=== PATIENT | male | born 1975 | race Caucasian/White ===

== ENCOUNTER 2020-07-17 13:18 | Inpatient (IN) | payer BC ==
[2020-07-17] MEDS ORDERED: Metoprolol Tartrate 5 MG/5 ML VIAL ONE (13:42)
[2020-07-17] MEDS ORDERED: Nitroglycerin 2% Ointment 1 INCH/1 GM Packet ONE (13:42)
[2020-07-17 13:44] LABS: #Lymphocytes 1.6 thou/uL (1.20-3.40); #Monocytes 0.3 thou/uL (0.11-0.59); #Neutrophils 13.3 thou/uL (1.40-6.50); %Eosinophils 0.1 % (0.0-10.0); %Lymphocytes 10.6 % (21.0-51.0); %Monocytes 2.2 % (0.0-10.0); Mean Corpuscular HGB CONC 33.3 g/dL (32.0-36.0); Mean Corpuscular Hemoglobin 29.1 pg (27.0-31.0); Mean Corpuscular Volume 87.1 fL (78.0-98.0); Mean Platelet Volume 7.1 fL (7.4-10.4); Platelet Count 281 thou/uL (130-400); RBC Distribution Width 11.9 % (11.5-14.5); Red Blood Cell (RBC) Count 5.16 mill/uL (4.70-6.10); White Blood Cell (WBC) Count 15.3 thou/uL (4.8-10.8)
[2020-07-17] MEDS ORDERED: Aspirin Chewable 81 MG TAB ONE (13:45)
[2020-07-17 15:00] LABS: Albumin 4.3 g/dL (3.5-5.0)
[2020-07-17 15:01] LABS: Chloride 104 mmol/L (98-107); Sodium 138 mmol/L (136-145)
[2020-07-17 15:02] LABS: Calcium 9.7 mg/dL (7.8-10.44); Glucose 131 mg/dL (70-105)
[2020-07-17 15:03] LABS: Globulin 3.4 g/dL (2.4-3.5); Protein, Total 7.7 g/dL (6.0-8.3)
[2020-07-17 15:04] LABS: Anion Gap 15 mmol/L (10-20); Bilirubin, Total 0.4 mg/dL (0.2-1.2); Carbon Dioxide 23 mmol/L (22-29)
[2020-07-17 15:05] LABS: Alkaline Phosphatase 54 U/L (40-110)
[2020-07-17 15:06] LABS: Calc. Creatinine Clearance 0 mL/min (70-130)
[2020-07-17 15:07] LABS: BUN (Urea Nitrogen) 16 mg/dL (8.9-20.6)
[2020-07-17 15:08] LABS: ALT (SGPT) 24 U/L (8-55); AST (SGOT) 13 U/L (5-34)
[2020-07-17 15:09] LABS: CK (CPK) 79 U/L (30-200); Lipase 53 U/L (8-78)
--- NOTE | 2020-07-17 16:15 | RAD ---
PORTABLE CHEST; Date: 07/17/2020 HISTORY: Chest pain. FINDINGS: Heart size and mediastinum are within normal limits. Lungs are clear of infiltrates. No bony findings . IMPRESSION: No active intrathoracic disease. POS: NAVIN
[2020-07-17 17:40] LABS: Troponin I Less than 0.010 ng/mL (< 0.028)
[2020-07-17] MEDS ORDERED: Metoprolol Tartrate 25 MG TAB ONE (18:57)
[2020-07-17] MEDS: Metoprolol Tartrate 25 MG TAB PO SCH (18:59)
[2020-07-17] MEDS ORDERED: Nitroglycerin 0.4 MG TAB (25 Tab Bottle) SL PRN (19:40)
[2020-07-17] MEDS ORDERED: Morphine 2 MG/ML VIAL SLOW IVP PRN (19:41)
[2020-07-17] MEDS ORDERED: HYDROcodone/Acetaminophen 5/325 mg Tablet PO PRN (20:04)
[2020-07-17] MEDS ORDERED: Ondansetron ODT 4 MG TAB PO PRN (20:04)
[2020-07-17] MEDS ORDERED: Ondansetron PF 4 MG/2 ML Vial IVP PRN (20:04)
[2020-07-17] MEDS: Acetaminophen 325 MG TAB PO PRN (20:21)
[2020-07-17] MEDS ORDERED: Diltiazem 125 MG in Sodium Chloride 0.9% 100 ML IVPB SCH (21:00)
[2020-07-17 21:01] LABS: Anion Gap 15 mmol/L (10-20); BUN (Urea Nitrogen) 16 mg/dL (8.9-20.6); Calc. Creatinine Clearance 0 mL/min (70-130); Calcium 9.3 mg/dL (7.8-10.44); Carbon Dioxide 23 mmol/L (22-29); Chloride 105 mmol/L (98-107); Glucose 171 mg/dL (70-105); Magnesium 1.9 mg/dL (1.6-2.6); Potassium 3.8 mmol/L (3.5-5.1); Sodium 139 mmol/L (136-145)
[2020-07-17 21:05] LABS: Troponin I Less than 0.010 ng/mL (< 0.028)
--- NOTE | 2020-07-17 21:17 | PDOC.HHP ---
Hospitalist HPI chest pain History of Present Illness: This is a 45-year-old male patient with a history of hypercholesterolemia who presents with intermittent episodes of palpitation and chest pain for the past 4 to 5 days. This has become more frequent with regular chest discomfort that led him to come to the ED for further evaluation. Pain is usually mild however is aggravated by activity with intermittent shortness of breath. He denies any wheezing orthopnea paroxysmal nocturnal dyspnea or swelling of his feet. Is a strong family history of coronary disease with his father having a stent in his grandfather dying of an IN. In the ED his heart rate fluctuated between 100s and 150s. Cardiology/A. fib/consulted and he agreed for admission and monitoring. Presenting BP was 138/100, pulse 115, respiratory rate 16, temperature 98.1 and saturation 97 on room air. CBC and BMP presentation were generally unremarkable. Chest x-ray showed no active intrathoracic events. EKG showed sinus arrhythmia with no ectopy, no ST or T wave anomalies or axis changes on presentation In the ED he received aspirin 3 2 5 mg, metoprolol 5 mg IV push, nitro.. Cardiology recommended 2 5 mg every 6 metoprolol Allergies/Adverse Reactions: Allergy/AdvReac Type Severity Reaction Status Date / Time iodine Allergy Unknown Verified 07/17/20 23:19 Penicillins Allergy Unknown Hives Verified 07/18/20 00:02 shellfish derived Allergy Unknown Hives Verified 07/17/20 23:19 Home Medications: Medication Instructions Recorded Confirmed Type Fenofibrate Nanocrystallized 145 mg PO DAILY 07/17/20 07/17/20 History [Tricor] Aspirin/Acetaminophen/Caffeine 2 tab PO DAILY 07/18/20 07/18/20 History [Excedrin Migraine] Rosuvastatin [Crestor] 10 mg PO DAILY 07/18/20 07/18/20 History Past History: PMHx: PSHx: FHx: Social: Hospitalist HPI ROS Constitutional: denies: fever, chills, sweats, weakness Respiratory: reports: shortness of breath. denies: cough, hemoptysis, SOB with excertion, pleuritic pain Cardiovascular: reports: chest pain, palpitations. denies: orthopnea, paroxysmal noc. dyspnea, edema Gastrointestinal: denies: nausea, vomiting, abdominal pain, diarrhea Genitourinary: denies: dysuria, frequency, incontinence Musculoskeletal: denies: neck pain, shoulder pain, arm pain Neurological: denies: weakness, numbness, incoordination All other systems reviewed; all pertinent +/- noted in HPI/Subj Hospitalist Exam General Appearance: awake alert Eye: PERRL, anicteric sclera ENT: normocephalic atraumatic Heart: RRR, no murmur, no gallops, no rubs, normal peripheral pulses Respiratory: CTAB, no wheezes, no rales, no ronchi Gastrointestinal: soft, non-tender, non-distended, normal bowel sounds Extremities: no cyanosis, no clubbing, no edema Skin: normal turgor, no lesions Neurological: cranial nerve grossly intact, no weakness, no focal deficits Musculoskeletal: normal tone Psychiatric: normal affect, normal behavior, A&O x 3 Hospitalist Results Result Diagrams: 07/19/20 04:16 07/19/20 04:16 Lab results: Laboratory Last Values WBC 15.3 thou/uL (4.8-10.8) H 07/17/20 13:34 RBC 5.16 mill/uL (4.70-6.10) 07/17/20 13:34 Hgb 15.0 g/dL (14.0-18.0) 07/17/20 13:34 Hct 44.9 % (42.0-52.0) 07/17/20 13:34 MCV 87.1 fL (78.0-98.0) 07/17/20 13:34 MCH 29.1 pg (27.0-31.0) 07/17/20 13:34 MCHC 33.3 g/dL (32.0-36.0) 07/17/20 13:34 RDW 11.9 % (11.5-14.5) 07/17/20 13:34 Plt Count 281 thou/uL (130-400) 07/17/20 13:34 MPV 7.1 fL (7.4-10.4) L 07/17/20 13:34 Neutrophils % 87.0 % (42.0-75.0) H 07/17/20 13:34 Lymphocytes % 10.6 % (21.0-51.0) L 07/17/20 13:34 Monocytes % 2.2 % (0.0-10.0) 07/17/20 13:34 Eosinophils % 0.1 % (0.0-10.0) 07/17/20 13:34 Basophils % 0.0 % (0.0-1.0) 07/17/20 13:34 Neutrophils # 13.3 thou/uL (1.40-6.50) H 07/17/20 13:34 Lymphocytes # 1.6 thou/uL (1.20-3.40) 07/17/20 13:34 Monocytes # 0.3 thou/uL (0.11-0.59) 07/17/20 13:34 Eosinophils # 0.0 thou/uL (0.0-0.7) 07/17/20 13:34 Basophils # 0.0 thou/uL (0.0-0.2) 07/17/20 13:34 D-Dimer Less than 0.27 *mcg/mL (0.27-0.43) L 07/17/20 13:34 Sodium 139 mmol/L (136-145) 07/17/20 20:30 Potassium 3.8 mmol/L (3.5-5.1) 07/17/20 20:30 Chloride 105 mmol/L (98-107) 07/17/20 20:30 Carbon Dioxide 23 mmol/L (22-29) 07/17/20 20:30 Anion Gap 15 mmol/L (10-20) 07/17/20 20:30 BUN 16 mg/dL (8.9-20.6) 07/17/20 20:30 Creatinine 0.90 mg/dL (0.7-1.3) 07/17/20 20:30 Estimated GFR (MDRD) Greater than 90 07/17/20 20:30 Glucose 171 mg/dL (70-105) H 07/17/20 20:30 Calcium 9.3 mg/dL (7.8-10.44) 07/17/20 20:30 Magnesium 1.9 mg/dL (1.6-2.6) 07/17/20 20:30 Total Bilirubin 0.4 mg/dL (0.2-1.2) 07/17/20 14:35 AST 13 U/L (5-34) 07/17/20 14:35 ALT 24 U/L (8-55) 07/17/20 14:35 Alkaline Phosphatase 54 U/L (40-110) 07/17/20 14:35 Creatine Kinase 79 U/L (30-200) 07/17/20 14:35 Troponin I Less than 0.010 ng/mL (< 0.028) 07/17/20 20:30 Serum Total Protein 7.7 g/dL (6.0-8.3) 07/17/20 14:35 Albumin 4.3 g/dL (3.5-5.0) 07/17/20 14:35 Globulin 3.4 g/dL (2.4-3.5) 07/17/20 14:35 Albumin/Globulin Ratio 1.3 g/dL (1.2-2.2) 07/17/20 14:35 Lipase 53 U/L (8-78) 07/17/20 14:35 TSH 3rd Generation 0.3611 uIU/mL (0.35-4.94) 07/17/20 13:34 Hospitalist H&P A/P Plan: This is a 45-year-old male patient with a history of hyperlipidemia who presents with intermittent chest pain and palpitations for the past 45 days. Chest pain Generally atypical Received aspirinwe will continue Monitor on telemetry Initial troponin is normalwe will trend N.p.o. Cardiology evaluation in a.m. Cardiac arrythmias Patient has fluctuating heart rates with intermitent SVTs, VTs on tele We will monitor on telemetry On metoprolol 25 every 4 We will add Cardizem once rate keeps increasing EP evaluation in a.m.Dr. Ayala is following History of hyperlipidemia Continue home medications once verified. Go to [facility] code VT prophylaxislevel
[2020-07-17 22:50] VITALS: BMI 29.2
[2020-07-18] MEDS: Metoprolol Tartrate 25 MG TAB PO SCH ×5 (00:03→21:25)
[2020-07-18] MEDS: Acetaminophen 325 MG TAB PO PRN (00:04)
--- NOTE | 2020-07-18 00:10 | CON ---
DATE OF CONSULTATION: 07/17/2020 ADDITIONAL REFERRING PHYSICIAN: Milind Martin MD HISTORY OF PRESENT ILLNESS: I am seeing Mr. Rios at our [facility] ER for electrophysiology consultation. His problems are: 1. Recurrent palpitations with associated chest tightness and dyspnea. a. EKG suggestive of frequent paroxysmal atrial tachycardia. b. Nonsustained wide-complex rhythm also noted, VT versus aberrant conducted atrial tach. 2. History of hyperlipidemia. 3. Strong family history of early coronary artery disease of the father and history of atrial fibrillation with father. ALLERGIES: PENICILLINS AND SHELLFISH CONTAINING PRODUCTS. MEDICATIONS AT HOME: Included none. SUBJECTIVE: Mr. Rios is here due to 6 days history of palpitations and dyspnea. Some dull chest tightness sensation is also felt. He eventually ended up with Dr. Kearney, his primary care doctor's office, who sent him to Dr. Martin's office eventually and in the ER, he has been noted to have runs of narrow complex but also wide-complex arrhythmia, none of them were sustained. His palpitations are fairly read as symptomatic. He did not pass out, mildly lightheaded at times. No PND, orthopnea lower extremity versus any fluid overload. There are no additional issues. No stroke-like symptoms. No bleeding issues. No fever, chills, or cough. He is not markedly dyspneic at rest. REVIEW OF SYSTEMS: The rest of 12-point review of system is otherwise unremarkable. SOCIAL HISTORY: No prior cardiac history. Denies smoking, EtOH, or drug abuse. He is a [employer] professor. FAMILY HISTORY: Significant for early heart attack of the father who had atrial fibrillation ablation as well. OBJECTIVE: VITAL SIGNS: Blood pressure initially 138/100, heart rate 115, respirations 16, and temperature 98.1 degrees Fahrenheit. Subsequent blood pressure is 126/90, heart rate 90, respirations 17. GENERAL: This is an alert and oriented man, in no apparent distress. NECK: Supple. Jugular veins are not distended. CHEST: Coarse without crackles. HEART: Sounds are regular with episodes of tachy runs are heard. No murmur or gallop. ABDOMEN: Benign. Bowel sounds are positive. EXTREMITIES: Lower extremities without edema, clubbing, or cyanosis. Pulses are adequate. NEUROLOGIC: The patient is nonfocal. MUSCULOSKELETAL: Without joints swelling or deformity. SKIN: Without rash. DATABASE: EKG from admission reviewed revealing sinus rhythm with paroxysmal atrial tachycardia runs alternating with sinus beats, thus clearly differential P-waves seen which are with negative aVL and AVF vector, and the P-waves are seen suggestive of left atrial in origin. I did review an electronically transmitted image of rhythm strip from Dr. Kearney's office, which seems to indicate a nonsustained wide-complex run, but this is similar rates as the atrial tachyarrhythmia runs which could raise the possibility of aberrant and complex PAT, although P-waves are difficult to visualize. LABORATORY DATA: Troponin 0.01. TSH 0.036. D-dimer is 0.27. White count is 15.3, hemoglobin 15, platelet count is 281, which was 87. Sodium 138, potassium 4, BUN is 15, creatinine 0.84, albumin 4.3, globulin 3.4. AST and ALT are 13 and 24. Bilirubin is 0.4. Chest x-ray shows no active cardiothoracic disease and D-dimer was negative. ASSESSMENT AND PLAN: Mr. Rios is a pleasant 45-year-old man with history of hyperlipidemia. No prior cardiac history who though has a strong family history of early coronary artery disease of his father. He is presenting with 6 days of palpitations associated with dull chest pains and dyspnea. EKG suggestive of paroxysmal atrial tachycardia runs, which seems to have somewhat improved, but not limited by initial IV beta-dorian therapy. So far, there is no obvious provoking factor of this atrial arrhythmia identified. Clearly rapid heartbeats could contribute to his chest pains. On the other hand is strong family history. Ischemic evaluation could be reasonable. Also 2D echo would be beneficial to rule out structural heart disease. In the meantime, p.o. beta-blockers, possibly IV Cardizem could be considered if that is insufficient to suppress the rhythm. Long-term addition of antiarrhythmic agents depending on the cardiac workup could be considered. Hence, the lack of sustained atrial arrhythmias for now. I would not commit him for oral anticoagulation. Subcutaneous Lovenox likely will suffice in the interm. If long-term medical management fails, there could be a consideration for ablated therapy. Thank you again for allowing me to participate in care of this patient. Job ID: [id number] [facility]
[2020-07-18] MEDS ORDERED: Magnesium 2 GM/50 ML 2 GM in Premix Bag 1 BAG IVPB SCH (00:30)
[2020-07-18 01:18] LABS: Troponin I 0.017 ng/mL (< 0.028)
[2020-07-18 04:51] LABS: #Lymphocytes 2.1 thou/uL (1.20-3.40); #Monocytes 1.6 thou/uL (0.11-0.59); %Basophils 0.1 % (0.0-1.0); %Eosinophils 0.1 % (0.0-10.0); %Monocytes 8.9 % (0.0-10.0); Hemoglobin 14.2 g/dL (14.0-18.0); Mean Corpuscular Hemoglobin 30.3 pg (27.0-31.0); Mean Corpuscular Volume 88.9 fL (78.0-98.0); Mean Platelet Volume 7.1 fL (7.4-10.4); Platelet Count 289 thou/uL (130-400); Red Blood Cell (RBC) Count 4.69 mill/uL (4.70-6.10); White Blood Cell (WBC) Count 17.7 thou/uL (4.8-10.8)
[2020-07-18 05:04] LABS: Anion Gap 15 mmol/L (10-20); BUN (Urea Nitrogen) 19 mg/dL (8.9-20.6); Calc. Creatinine Clearance 140 mL/min (70-130); Calcium 9.1 mg/dL (7.8-10.44); Carbon Dioxide 23 mmol/L (22-29); Chloride 107 mmol/L (98-107); Glucose 117 mg/dL (70-105); Potassium 3.9 mmol/L (3.5-5.1); Sodium 141 mmol/L (136-145)
[2020-07-18] MEDS: Fenofibrate Nanocrystallized 145 MG TAB PO SCH (09:02)
[2020-07-18] MEDS ORDERED: ADENOSINE 60 MG/20 ML VIAL ONE (09:55)
[2020-07-18] MEDS ORDERED: Communication Order-Pharmacy FS SCH (11:30)
--- NOTE | 2020-07-18 12:56 | PDOC.EP ---
- Subjective Date: 07/18/20 Time: 12:55 Interval History: Had frequent palpitations overnight. Chest tightness sensation better. - Review of Systems Constitutional: denies: chills, fever, malaise, sweats, weakness, other Respiratory: denies: cough, dry, hemoptysis, pleuritic pain, shortness of breath, SOB with excertion, sputum, wheezing, other Cardiology: reports: heart racing, palpitations. denies: chest pain, edema, orthopnea, paroxysmal noc. dyspnea, passing out Gastrointestinal: denies: abdominal pain, constipation, diarrhea, hematochezia, melena, nausea, vomitting, other Musculoskeletal: denies: unstable gait, falls, neck pain, shoulder pain, arm pain, hand pain, leg pain, foot pain, other Neurological: denies: headache, vision changes, other - Objective Allergies/Adverse Reactions: Allergies Allergy/AdvReac Type Severity Reaction Status Date / Time iodine Allergy Unknown Verified 07/17/20 23:19 Penicillins Allergy Unknown Hives Verified 07/18/20 00:02 shellfish derived Allergy Unknown Hives Verified 07/17/20 23:19 Current Medications Acetaminophen (Acetaminophen 325 Mg Tab) 650 mg PO Q4H PRN PRN Reason: Headache/Fever/Mild Pain (1-3) Last Admin: 07/18/20 00:04 Dose: 650 mg Documented by: Hydrocodone Bitart/Acetaminophen (Hydrocodone/Acetaminophen 5/325 Mg Tablet) 1 tab PO Q4H PRN PRN Reason: Moderate Pain (4-6) Fenofibrate (Fenofibrate Nanocrystallized 145 Mg Tab) 145 mg PO DAILY [facility] Last Admin: 07/18/20 09:02 Dose: 145 mg Documented by: Diltiazem HCl 125 mg/ Sodium (Chloride) 125 mls @ 5 mls/hr IVPB INF [facility]; Protocol Last Admin: 07/17/20 21:42 Dose: 125 mls Documented by: Sodium Chloride (Normal Saline 0.9%) 1,000 mls @ 100 mls/hr IV .Q10H [facility] Influenza Virus Vaccine Quadrival (Flu Vacc Be4583-02(6mos Up)/Pf 60 Mcg/0.5 Ml Syringe) 60 mcg IM .ONCE ONE Stop: 07/18/20 21:01 Metoprolol Tartrate (Metoprolol Tartrate 25 Mg Tab) 25 mg PO QID [facility] Last Admin: 07/18/20 09:00 Dose: Not Given Documented by: Miscellaneous Information (Communication Order-Pharmacy ) 0 each FS ONE [facility] Stop: 07/18/20 23:59 Morphine Sulfate (Morphine 2 Mg/Ml Vial) 2 mg SLOW IVP Q4H PRN PRN Reason: Severe Pain (7-10) Nitroglycerin (Nitroglycerin 0.4 Mg Tab (25 Tab Bottle)) 0.4 mg SL Q5MIN PRN PRN Reason: Chest Pain Ondansetron HCl (Ondansetron Odt 4 Mg Tab) 4 mg PO Q6H PRN PRN Reason: Nausea/Vomiting Ondansetron HCl (Ondansetron Pf 4 Mg/2 Ml Vial) 4 mg IVP Q6H PRN PRN Reason: Nausea/Vomiting Vital Signs & Weight: Vital Signs Temp Pulse Resp BP BP Pulse Ox 07/18/20 07:53 97.6 F 72 16 90/55 L 94 L 07/18/20 04:05 98.6 F 63 16 96/59 L 96 Weight 204 lb I/O: I/O 07/17/20 07/18/20 07/19/20 06:59 06:59 06:59 Intake Total 480 Balance 480 - Physical Exam General: alert & oriented x3, appears well HEENT: normocephaly Neck: no JVD/HJR Cardiology: no murmur, regular rate, regular rhythm Lungs: normal breath sounds Neurology: grossly intact Abdomen: unremarkable, soft, non-tender Extremities: warm Skin: device site stable w/o swelling Musculoskeletal: no pain - Labs Result Diagrams: 07/18/20 04:08 07/18/20 04:08 - EKG Interpretation EKG Method: Telemetry EKG shows: Sinus rhythm, other (Frequent PAT runs. Occasional aberration. Cannot rule out NS-VT runs.) - Assessment/Plan Assessment/Plan: Mr. Rios is a pleasant 45-year-old man with history of hyperlipidemia. No prior cardiac history who though has a strong family history of early coronary artery disease of his father. He is presenting with 6 days of palpitations associated with dull chest pains and dyspnea. EKG suggestive of paroxysmal atrial tachycardia runs, which seems to have somewhat improved, but not limited by initial IV beta-dorian therapy. So far, there is no obvious provoking factor of this atrial arrhythmia identified. PROBLEMS: 1. Parox atrial tachycardia with associated chest tightness and dyspnea. a. EKG suggestive of frequent paroxysmal atrial tachycardia. b. Nonsustained wide-complex rhythm also noted, VT versus aberrant conducted atrial tach, hence identical CL, 1:1 AV relationship most likley aberratly conducted A.tach. . c. Clearly rapid heartbeats could contribute to his chest pains. Ischemic eval is planned per Dr Martin. . 2. History of hyperlipidemia. 3. Strong family history of early coronary artery disease of the father and history of atrial fibrillation with father. 07/18/20: Palpitations continue overnight. IV Diltiazem was transiently used, but did not eliminate arrhythmia, stopped due to tendency for bradycardia. 2D echo and stress test results pending to rule out structural heart disease. If workup negative would start flecainde 100mg BID. If structural heart disease would consider transient amiodarone. In the meantime, uptitrate p.o. beta-blockers, Hence, the lack of sustained atrial arrhythmias for now. I would not commit him for oral anticoagulation. Subcutaneous Lovenox likely will suffice in the interim. Will see him again 07/21 if kept over the weekend, otherwise close follow up in office after 1 week Home monitor.
[2020-07-18] MEDS: Sodium Chloride 0.9% 1,000 ML IV SCH ×2 (13:21→21:24)
--- NOTE | 2020-07-18 13:49 | CON ---
DATE OF CONSULTATION: REASON FOR CONSULTATION: Atypical chest pain. HISTORY OF PRESENT ILLNESS: Mr. Rios is a 45-year-old gentleman, who initially was seen and evaluated by Dr. Faibán Kearney yesterday. I had a long discussion with Dr. Fabián Kearney about the case yesterday. The patient was having palpitations. He is concerned about COVID pneumonia. He tested negative x3. He continued having palpitations intermittently with lightheadedness. No syncope or presyncope noted. He also had associated chest tightness and pressure. States the chest tightness and pressure were worse with lying down, better with sitting up. He was seen and evaluated by Dr. Fabián Kearney's office yesterday, where he was found to have brief runs of atrial tachycardia with the PACs and pauses. He also appeared to have a wide-complex tachycardia. He was seen briefly, evaluated in our office yesterday and was recommended to proceed to the emergency room. PAST MEDICAL HISTORY: Hyperlipidemia. FAMILY HISTORY: CAD. ALLERGIES: IODINE, PENICILLIN, SHELLFISH. HOME MEDICATIONS: Include fenofibrate. SOCIAL HISTORY: No current tobacco or alcohol use. 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 REVIEW OF SYSTEMS: A 10-point review of systems is reviewed and is as above, otherwise negative. PHYSICAL EXAMINATION: VITAL SIGNS: Blood pressure 114/76, pulse 80, temperature 96.4. GENERAL: Patient is a pleasant male who is in no acute distress. The patient appears their stated age. NEUROLOGIC: The patient is alert and oriented x3 with no focal neurologic deficits. HEENT: Sclerae without icterus. Mouth has moist mucous membranes with normal pallor. NECK: No JVD. Carotid upstroke brisk. No bruits bilaterally. LUNGS: Clear to auscultation with unlabored respirations. BACK: No scoliosis or kyphosis. CARDIAC: Regular rate and rhythm with normal S1 and S2. No S3 or S4 noted. No significant rubs, murmurs, thrills, or gallops noted throughout the precordium. PMI is not displaced. There is no parasternal heave. ABDOMEN: Soft, nontender, nondistended. No peritoneal signs present. No hepatosplenomegaly. No abnormal striae. EXTREMITIES: 2+ femoral and 2+ dorsalis pedis pulses. No cyanosis, clubbing, or edema. SKIN: No gross abnormalities. CURRENT LABS: CK negative. Hemoglobin 14.2. Creatinine 0.88. Troponin negative. IMPRESSION: 1. Wide-complex tachycardia. 2. Coronary artery disease. 3. Chest tightness. RECOMMENDATIONS: I am certainly concerned about chest pain as being cardiac, secondary to coronary artery disease. He has hyperlipidemia in addition to a family history of CAD. discussed the procedure of coronary angiography. I discussed the procedure in full detail with Mr. Rios. The risks of the procedure include but are not limited to the following: , stroke, RI, need for emergency surgery, loss of limb, bleeding, and infection, as well as a reaction to the dye causing kidney failure and needing long-term dialysis. I also discussed the risks of PCI to include all of the above including coronary dissection and perforation in addition to acute stent thrombosis and restenosis. All questions about the procedure were answered. Given the above, the patient agreed to proceed with coronary angiography and possible PCI. The patient does have an iodine allergy, so we will need to wait on angio. In the meantime, would recommend a noninvasive stress study. If felt to be within normal limits, I would then continue treat medically and leave it at the discretion of EP on how to treat his dysrhythmia. We will also recommend the ibuprofen in addition to colchicine in case this is an atypical presentation of pericarditis with irritation. Job ID: [id number]
[2020-07-18] MEDS: Ibuprofen 600 MG TAB PO SCH ×2 (18:01→23:29)
--- NOTE | 2020-07-18 18:04 | NM ---
NUCLEAR MEDICINE CARDIAC MYOCARDIAL PERFUSION SPECT EJECTION FRACTION STUDY WALL MOTION CINE: DATE: 07/18/2020 HISTORY: 45-year-old male with dyslipidemia presents with chest pain. TECHNIQUE: Number of days: 1 Rest study: Technetium 99m-sestamibi (Cardiolite) dose: 10.0 mCi Pharmacologic stress: Adenosine dose: 51.5 mg Stress study: Technetium 99m-sestamibi (Cardiolite) dose: 32.0 mCi FINDINGS: CARDIAC (MYOCARDIAL PERFUSION) SPECT Distribution of sestamibi is homogeneous throughout the left ventricle, with no fixed or reversible m yocardial perfusion defects. EJECTION FRACTION STUDY Left ventricular EF = 43 % WALL MOTION CINE Mild global hypokinesis, but no focal wall motion abnormality.. IMPRESSION: 1. Decreased left ventricular ejection fraction of 43%. 2. No evidence of left ventricular myocardial ischemia or infarction.
[2020-07-18] MEDS ORDERED: FLU VACC QS2020-21(6MOS UP)/PF 60 MCG/0.5 ML SYRINGE IM ONE (21:00)
[2020-07-18] MEDS: Colchicine 0.6 MG TAB PO SCH (21:25)
--- NOTE | 2020-07-18 22:44 | PDOC.HOSPP ---
- Subjective Encounter Date: 07/18/20 Encounter Time: 18:00 Subjective: Patient seen and examined for chest pain with palpitations. Underwent stress test earlier today. Denies any chest pain. - Objective Vital Signs & Weight: Vital Signs (12 hours) Temp Pulse Resp BP Pulse Ox 07/18/20 16:00 96.5 F L 63 17 117/80 95 07/18/20 12:00 96.4 F L 80 12 114/76 96 Weight Weight 204 lb I&O: 07/17/20 07/18/20 07/19/20 06:59 06:59 06:59 Intake Total 480 720 Balance 480 720 Result Diagrams: 07/19/20 04:16 07/19/20 04:16 Additional Labs: Abnormal Lab Results - Last 48 hrs 07/17/20 13:34: WBC 15.3 H, MPV 7.1 L, Neutrophils % 87.0 H, Lymphocytes % 10.6 L, Neutrophils # 13.3 H 07/17/20 13:34: D-Dimer Less than 0.27 L 07/18/20 04:08: WBC 17.7 H, RBC 4.69 L, Hct 41.7 L, MPV 7.1 L, Neutrophils % 79 .0 H, Lymphocytes % 12.0 L, Neutrophils # 14.0 H, Monocytes # 1.6 H Radiology Reviewed by me: Yes (Chest x-rayno infiltrate) EKG Reviewed by me: Yes (Sinus rhythm/tachyarrhythmia on telemetry) Hospitalist ROS - Review of Systems Gastrointestinal: denies: nausea, vomiting, abdominal pain, diarrhea, constipation, melena, hematochezia, other Genitourinary: denies: dysuria, frequency, incontinence, hematuria, retention, other - Medication Medications: Active Medications Generic Name Dose Route Start Last Admin Trade Name Freq PRN Reason Stop Dose Admin Acetaminophen 650 mg 07/17/20 20:04 07/18/20 00:04 Acetaminophen 325 Mg Tab PO 650 mg Q4H PRN Administration Headache/Fever/Mild Pain (1-3) Colchicine 0.6 mg 07/18/20 21:00 07/18/20 21:25 Colchicine 0.6 Mg Tab PO 0.6 mg BID DAVION Administration Fenofibrate 145 mg 07/18/20 09:00 07/18/20 09:02 Fenofibrate Nanocrystallized 145 Mg Tab PO 145 mg DAILY DAVION Administration Diltiazem HCl 125 mg/ Sodium 125 mls @ 5 mls/hr 07/17/20 21:00 07/17/20 21:42 Chloride IVPB 125 mls INF DAVION Administration Protocol 5 MG/HR Sodium Chloride 1,000 mls @ 100 mls/hr 07/18/20 11:30 07/18/20 21:24 Normal Saline 0.9% IV Not Given .Q10H DAVION Ibuprofen 600 mg 07/18/20 18:00 07/18/20 18:01 Ibuprofen 600 Mg Tab PO 600 mg Q6HR DAVION Administration Metoprolol Tartrate 25 mg 07/17/20 17:00 07/18/20 21:25 Metoprolol Tartrate 25 Mg Tab PO 25 mg QID DAVION Administration Hospitalist Exam Vitals: Vital Signs (12 hours) Temp Pulse Resp BP Pulse Ox 07/18/20 16:00 96.5 F L 63 17 117/80 95 07/18/20 12:00 96.4 F L 80 12 114/76 96 Weight Weight 204 lb General Appearance: NAD Neck: supple, no JVD Heart: RRR, no gallops Respiratory: no wheezes, no rales, no ronchi, normal chest expansion Gastrointestinal: soft, non-tender, normal bowel sounds Extremities: no cyanosis, no clubbing Skin: normal turgor Neurological: no new deficit Psychiatric: normal affect, A&O x 3 Hosp A/P (1) Chest pain Code(s): R07.9 - CHEST PAIN, UNSPECIFIED Status: Acute (2) Palpitations Code(s): R00.2 - PALPITATIONS Status: Acute (3) Wide-complex tachycardia Code(s): I47.2 - VENTRICULAR TACHYCARDIA Status: Acute (4) Dyslipidemia Code(s): E78.5 - HYPERLIPIDEMIA, UNSPECIFIED Status: Chronic (5) Family history of heart disease Code(s): Z82.49 - FAMILY HX OF ISCHEM HEART DIS AND OTH DIS OF THE CIRC SYS Status: Chronic (6) Allergy to iodine Code(s): Z88.8 - ALLERGY STATUS TO OTHER DRUG/MEDS/BIOL SUBST Status: Chronic - Plan DVT proph w/SCDs Patient is a 45-year-old male with hyperlipidemia and strong family history of heart disease presented to the hospital on 07/17 with chest discomfort along with intermittent palpitations of 4 to 5 days duration. In the emergency room, he was found to have intermittent SVTs and ventricular tachycardia. He was started on Cardizem drip which was later discontinued. Patient was then evaluated by electrophysiology as well as cardiology. Electrophysiology recommended beta- blockers. He also underwent a Cardiolite stress test on 07/18 that was negative for reversible ischemia or infarction. Ejection fraction on the stress test was 43%. He also underwent echocardiogramreport pending at this time. Plan: Magnesium replaced. Cardiology and electrophysiology input appreciated. Add aspirin. Continue colchicine and ibuprofen as needed per cardiology. Add GI prophylaxis. Check labs in a.m. DC planning once cleared by cardiology and electrophysiology
[2020-07-18] MEDS ORDERED: Electrolyte Replacement Protocol 1 EACH FS SCH (23:00)
[2020-07-19] MEDS ORDERED: Magnesium 2 GM/50 ML 2 GM in Premix Bag 1 BAG IVPB SCH (01:00)
[2020-07-19] MEDS: Sodium Chloride 0.9% 1,000 ML IV SCH (04:33)
[2020-07-19 04:37] LABS: #Basophils 0.1 thou/uL (0.0-0.2); #Eosinphils 0.1 thou/uL (0.0-0.7); #Lymphocytes 5.2 thou/uL (1.20-3.40); #Monocytes 1.1 thou/uL (0.11-0.59); #Neutrophils 6.9 thou/uL (1.40-6.50); %Basophils 0.5 % (0.0-1.0); %Eosinophils 0.9 % (0.0-10.0); %Monocytes 7.9 % (0.0-10.0); %Neutrophils 51.7 % (42.0-75.0); Hemoglobin 13.6 g/dL (14.0-18.0); Mean Corpuscular Hemoglobin 30.1 pg (27.0-31.0); Mean Corpuscular Volume 88.4 fL (78.0-98.0); Platelet Count 261 thou/uL (130-400); Red Blood Cell (RBC) Count 4.51 mill/uL (4.70-6.10); White Blood Cell (WBC) Count 13.4 thou/uL (4.8-10.8)
[2020-07-19 04:57] LABS: Anion Gap 12 mmol/L (10-20); BUN (Urea Nitrogen) 28 mg/dL (8.9-20.6); Calc. Creatinine Clearance 125 mL/min (70-130); Calcium 8.8 mg/dL (7.8-10.44); Carbon Dioxide 27 mmol/L (22-29); Chloride 104 mmol/L (98-107); Glucose 98 mg/dL (70-105); Magnesium 2.8 mg/dL (1.6-2.6); Potassium 3.8 mmol/L (3.5-5.1); Sodium 139 mmol/L (136-145)
[2020-07-19] MEDS ORDERED: Sodium Chloride 0.9% 250 ML IV SCH (05:00)
[2020-07-19] MEDS: Ibuprofen 600 MG TAB PO SCH ×3 (05:29→17:34)
[2020-07-19] MEDS: Metoprolol Tartrate 25 MG TAB PO SCH ×3 (08:13→20:26)
[2020-07-19] MEDS: Colchicine 0.6 MG TAB PO SCH ×2 (08:13→20:27)
[2020-07-19] MEDS: Aspirin 325 mg Enteric Coated Tablet PO SCH (08:13)
[2020-07-19] MEDS: Fenofibrate Nanocrystallized 145 MG TAB PO SCH (08:13)
[2020-07-19] MEDS ORDERED: Amiodarone 200 MG TAB PO SCH (10:00)
[2020-07-19] MEDS ORDERED: Metoprolol Tartrate 25 MG TAB PO SCH (12:15)
--- NOTE | 2020-07-19 18:08 | PDOC.HOSPP ---
- Subjective Encounter Date: 07/19/20 Encounter Time: 14:00 Subjective: Patient seen and examined for chest discomfort with palpitations. Overnight events noted. Was started on amiodarone this morning per electrophysiology. Metoprolol was held due to bradycardia. Patient was symptomatic during the tachyarrhythmia last night - Objective Vital Signs & Weight: Vital Signs (12 hours) Temp Pulse Resp BP BP Pulse Ox 07/19/20 15:46 97.8 F 61 16 101/56 L 99 07/19/20 11:24 98.6 F 69 16 108/67 96 07/19/20 08:00 97.5 F L 82 16 105/57 L 96 Weight Weight 204 lb I&O: 07/18/20 07/19/20 07/20/20 06:59 06:59 06:59 Intake Total 480 1380 850 Output Total 550 Balance 480 830 850 Result Diagrams: 07/19/20 04:16 07/19/20 04:16 Additional Labs: Abnormal Lab Results - Last 48 hrs 07/18/20 04:08: WBC 17.7 H, RBC 4.69 L, Hct 41.7 L, MPV 7.1 L, Neutrophils % 79.0 H, Lymphocytes % 12.0 L, Neutrophils # 14.0 H, Monocytes # 1.6 H 07/19/20 04:16: BUN 28 H, Magnesium 2.8 H 07/19/20 04:16: WBC 13.4 H, RBC 4.51 L, Hgb 13.6 L, Hct 39.9 L, MPV 7.0 L, Neutrophils # 6.9 H, Lymphocytes # 5.2 H, Monocytes # 1.1 H EKG Reviewed by me: Yes (Telemetry showed tachyarrhythmia with sinus pauses) Hospitalist ROS - Review of Systems Gastrointestinal: denies: nausea, vomiting, abdominal pain, diarrhea, constip ation, melena, hematochezia, other Genitourinary: denies: dysuria, frequency, incontinence, hematuria, retention, other - Medication Medications: Active Medications Generic Name Dose Route Start Last Admin Trade Name Freq PRN Reason Stop Dose Admin Acetaminophen 650 mg 07/17/20 20:04 07/18/20 00:04 Acetaminophen 325 Mg Tab PO 650 mg Q4H PRN Administration Headache/Fever/Mild Pain (1-3) Aspirin 325 mg 07/19/20 09:00 07/19/20 08:13 Aspirin 325 Mg Enteric Coated Tablet PO 325 mg DAILY DAVION Administration Colchicine 0.6 mg 07/18/20 21:00 07/19/20 08:13 Colchicine 0.6 Mg Tab PO 0.6 mg BID DAVION Administration Fenofibrate 145 mg 07/18/20 09:00 07/19/20 08:13 Fenofibrate Nanocrystallized 145 Mg Tab PO 145 mg DAILY DVAION Administration Ibuprofen 600 mg 07/18/20 18:00 07/19/20 17:34 Ibuprofen 600 Mg Tab PO 600 mg Q6HR DAVION Administration Pantoprazole Sodium 40 mg 07/19/20 09:00 07/19/20 08:13 Pantoprazole 40 Mg Tab PO 40 mg DAILY DAVION Administration Hospitalist Exam Vitals: Vital Signs (12 hours) Temp Pulse Resp BP BP Pulse Ox 07/19/20 15:46 97.8 F 61 16 101/56 L 99 07/19/20 11:24 98.6 F 69 16 108/67 96 07/19/20 08:00 97.5 F L 82 16 105/57 L 96 Weight Weight 204 lb General Appearance: NAD Heart: RRR, no gallops Respiratory: no wheezes, no ronchi Gastrointestinal: soft, non-tender, normal bowel sounds Extremities: no cyanosis, no clubbing Neurological: no new deficit Psychiatric: A&O x 3 Hosp A/P (1) Chest pain Code(s): R07.9 - CHEST PAIN, UNSPECIFIED Status: Acute (2) Palpitations Code(s): R00.2 - PALPITATIONS Status: Acute (3) Wide-complex tachycardia Code(s): I47.2 - VENTRICULAR TACHYCARDIA Status: Acute (4) Dyslipidemia Code(s): E78.5 - HYPERLIPIDEMIA, UNSPECIFIED Status: Chronic (5) Family history of heart disease Code(s): Z82.49 - FAMILY HX OF ISCHEM HEART DIS AND OTH DIS OF THE CIRC SYS Status: Chronic (6) Allergy to iodine Code(s): Z88.8 - ALLERGY STATUS TO OTHER DRUG/MEDS/BIOL SUBST Status: Chronic - Plan DVT proph w/SCDs Patient is a 45-year-old male with hyperlipidemia and strong family history of heart disease presented to the hospital on 07/17 with chest discomfort along with intermittent palpitations of 4 to 5 days duration. In the emergency room, he was found to have intermittent SVTs and ventricular tachycardia. He was started on Cardizem drip which was later discontinued. Patient was then evaluated by electrophysiology as well as cardiology. Electrophysiology recommended beta- blockers. He also underwent a Cardiolite stress test on 07/18 that was negative for reversible ischemia or infarction. Ejection fraction on the stress test was 43%. He also underwent echocardiogramreport pending at this time. He was initially started on metoprolol 25 mg 4 times a day that was later changed to 12.5 mg twice daily due to sinus pauses. On 07/18 he was started on amiodarone per EP Plan: We will continue telemetry monitoring. Continue aspirin. Reduce metoprolol dose to 12.5 mg twice daily per EP recommendation. Continue amiodarone loading. CRP was negative. Continue other medications as above. Case discussed with electrophysiology.
[2020-07-19] MEDS: Amiodarone 200 MG TAB PO SCH (20:27)
[2020-07-20] MEDS: Ibuprofen 600 MG TAB PO SCH ×5 (00:25→23:15)
[2020-07-20] MEDS: Fenofibrate Nanocrystallized 145 MG TAB PO SCH (09:55)
[2020-07-20] MEDS: Colchicine 0.6 MG TAB PO SCH (09:55)
[2020-07-20] MEDS: Amiodarone 200 MG TAB PO SCH ×2 (09:55→21:52)
[2020-07-20] MEDS: Aspirin 325 mg Enteric Coated Tablet PO SCH (09:55)
[2020-07-20] MEDS: Metoprolol Tartrate 25 MG TAB PO SCH ×2 (09:57→21:53)
--- NOTE | 2020-07-20 18:19 | PDOC.HOSPP ---
- Subjective Encounter Date: 07/20/20 Encounter Time: 11:30 Subjective: Patient seen and examined for chest pain/palpitations due to tachyarrhythmia. Denies any new complaints. No shortness of breath or palpitations reported - Objective Vital Signs & Weight: Vital Signs (12 hours) Temp Pulse Resp BP BP BP Pulse Ox 07/20/20 15:15 98.0 F 60 16 109/74 96 07/20/20 12:00 97.5 F L 53 L 16 116/73 97 07/20/20 09:55 97.4 F L 53 L 18 114/80 07/20/20 08:00 97.4 F L 58 L 16 114/80 97 Weight Weight 215 lb 4.8 oz I&O: 07/19/20 07/20/20 07/21/20 06:59 06:59 06:59 Intake Total 1380 1090 Output Total 550 Balance 830 1090 Result Diagrams: 07/19/20 04:16 07/19/20 04:16 EKG Reviewed by me: Yes (Sinus rhythm on telemetry) Hospitalist ROS - Review of Systems Respiratory: denies: cough, dry, shortness of breath, hemoptysis, SOB with excertion, pleuritic pain, sputum, wheezing, other Gastrointestinal: denies: nausea, vomiting, abdominal pain, diarrhea, constip ation, melena, hematochezia, other - Medication Medications: Active Medications Generic Name Dose Route Start Last Admin Trade Name Freq PRN Reason Stop Dose Admin Acetaminophen 650 mg 07/17/20 20:04 07/18/20 00:04 Acetaminophen 325 Mg Tab PO 650 mg Q4H PRN Administration Headache/Fever/Mild Pain (1-3) Amiodarone HCl 400 mg 07/19/20 21:00 07/20/20 09:55 Amiodarone 200 Mg Tab PO 400 mg BID DAVION Administration Aspirin 325 mg 07/19/20 09:00 07/20/20 09:55 Aspirin 325 Mg Enteric Coated Tablet PO 325 mg DAILY DAVION Administration Colchicine 0.6 mg 07/18/20 21:00 07/20/20 09:55 Colchicine 0.6 Mg Tab PO 0.6 mg BID DAVION Administration Fenofibrate 145 mg 07/18/20 09:00 07/20/20 09:55 Fenofibrate Nanocrystallized 145 Mg Tab PO 145 mg DAILY DAVION Administration Ibuprofen 600 mg 07/18/20 18:00 07/20/20 12:03 Ibuprofen 600 Mg Tab PO 600 mg Q6HR DAVION Administration Metoprolol Tartrate 12.5 mg 07/19/20 21:00 07/20/20 09:57 Metoprolol Tartrate 25 Mg Tab PO 12.5 mg BID DAVION Administration Pantoprazole Sodium 40 mg 07/19/20 09:00 07/20/20 09:55 Pantoprazole 40 Mg Tab PO 40 mg DAILY DAVION Administration Hospitalist Exam Vitals: Vital Signs (12 hours) Temp Pulse Resp BP BP BP Pulse Ox 07/20/20 15:15 98.0 F 60 16 109/74 96 07/20/20 12:00 97.5 F L 53 L 16 116/73 97 07/20/20 09:55 97.4 F L 53 L 18 114/80 07/20/20 08:00 97.4 F L 58 L 16 114/80 97 Weight Weight 215 lb 4.8 oz General Appearance: awake alert Neck: supple, no JVD Heart: no murmur, no rubs Respiratory: no wheezes, no rales Gastrointestinal: soft, non-tender Extremities: no cyanosis Neurological: no new deficit Psychiatric: A&O x 3 Hosp A/P (1) Chest pain Code(s): R07.9 - CHEST PAIN, UNSPECIFIED Status: Acute (2) Palpitations Code(s): R00.2 - PALPITATIONS Status: Acute (3) Wide-complex tachycardia Code(s): I47.2 - VENTRICULAR TACHYCARDIA Status: Acute (4) Dyslipidemia Code(s): E78.5 - HYPERLIPIDEMIA, UNSPECIFIED Status: Chronic (5) Family history of heart disease Code(s): Z82.49 - FAMILY HX OF ISCHEM HEART DIS AND OTH DIS OF THE CIRC SYS Status: Chronic (6) Allergy to iodine Code(s): Z88.8 - ALLERGY STATUS TO OTHER DRUG/MEDS/BIOL SUBST Status: Chronic - Plan Patient is a 45-year-old male with hyperlipidemia and strong family history of heart disease presented to the hospital on 07/17 with chest discomfort along with intermittent palpitations of 4 to 5 days duration. In the emergency room, he was found to have intermittent SVTs and ventricular tachycardia. He was started on Cardizem drip which was later discontinued. Patient was then evaluated by electrophysiology as well as cardiology. Electrophysiology recommended beta- blockers. He also underwent a Cardiolite stress test on 07/18 that was negative for reversible ischemia or infarction. Ejection fraction on the stress test was 43%. He also underwent echocardiogramreport pending at this time. He was initially started on metoprolol 25 mg 4 times a day that was later changed to 12.5 mg twice daily due to sinus pauses. On 07/18 he was started on amiodarone per EP Plan: We will continue telemetry monitoring. Continue aspirin. Reduce metoprolol dose to 12.5 mg twice daily per EP recommendation. Continue amiodarone loading. CRP was negative. Continue other medications as above. Case discussed with electrophysiology.
[2020-07-20] MEDS ORDERED: predniSONE 20 MG TAB PO SCH (22:45)
[2020-07-20] MEDS ORDERED: Famotidine 20 MG TAB PO SCH (23:00)
[2020-07-20] MEDS ORDERED: diphenhydrAMINE 25 MG CAP PO SCH (23:00)
--- NOTE | 2020-07-20 23:25 | PDOC.HOSPP ---
- Subjective Encounter Date: 07/20/20 Encounter Time: 11:00 Subjective: Patient seen and examined for chest discomfort/palpitations. Continues to have intermittent palpitations with Arrhythmia on telemetry - Objective Vital Signs & Weight: Vital Signs (12 hours) Temp Pulse Resp BP BP Pulse Ox 07/20/20 15:15 98.0 F 60 16 109/74 96 07/20/20 12:00 97.5 F L 53 L 16 116/73 97 Weight Weight 215 lb 4.8 oz I&O: 07/19/20 07/20/20 07/21/20 06:59 06:59 06:59 Intake Total 1380 1090 750 Output Total 550 300 Balance 830 1090 450 Result Diagrams: 07/19/20 04:16 07/19/20 04:16 Additional Labs: Abnormal Lab Results - Last 48 hrs 07/19/20 04:16: BUN 28 H, Magnesium 2.8 H 07/19/20 04:16: WBC 13.4 H, RBC 4.51 L, Hgb 13.6 L, Hct 39.9 L, MPV 7.0 L, Neutrophils # 6.9 H, Lymphocytes # 5.2 H, Monocytes # 1.1 H EKG Reviewed by me: Yes (survey crew chief shows various arrhythmias) Hospitalist ROS - Review of Systems Respiratory: denies: cough, dry, shortness of breath, hemoptysis, SOB with excertion, pleuritic pain, sputum, wheezing, other Gastrointestinal: denies: nausea, vomiting, abdominal pain, diarrhea, constipation, melena, hematochezia, other - Medication Medications: Active Medications Generic Name Dose Route Start Last Admin Trade Name Praveen PRN Reason Stop Dose Admin Acetaminophen 650 mg 07/17/20 20:04 07/18/20 00:04 Acetaminophen 325 Mg Tab PO 650 mg Q4H PRN Administration Headache/Fever/Mild Pain (1-3) Amiodarone HCl 400 mg 07/19/20 21:00 07/20/20 21:52 Amiodarone 200 Mg Tab PO 400 mg BID DAVION Administration Aspirin 325 mg 07/19/20 09:00 07/20/20 09:55 Aspirin 325 Mg Enteric Coated Tablet PO 325 mg DAILY DAVION Administration Diphenhydramine HCl 25 mg 07/20/20 23:00 07/20/20 23:14 Diphenhydramine 25 Mg Cap PO 07/21/20 01:00 25 mg NOW DAVION Administration Famotidine 40 mg 07/20/20 23:00 07/20/20 23:14 Famotidine 20 Mg Tab PO 07/21/20 01:00 40 mg NOW DAVION Administration Fenofibrate 145 mg 07/18/20 09:00 07/20/20 09:55 Fenofibrate Nanocrystallized 145 Mg Tab PO 145 mg DAILY DAVION Administration Ibuprofen 600 mg 07/18/20 18:00 07/20/20 23:15 Ibuprofen 600 Mg Tab PO 600 mg Q6HR DAVION Administration Metoprolol Tartrate 12.5 mg 07/19/20 21:00 07/20/20 21:53 Metoprolol Tartrate 25 Mg Tab PO 12.5 mg BID DAVION Administration Pantoprazole Sodium 40 mg 07/19/20 09:00 07/20/20 09:55 Pantoprazole 40 Mg Tab PO 40 mg DAILY DAVION Administration Prednisone 30 mg 07/20/20 22:45 07/20/20 23:14 Prednisone 20 Mg Tab PO 07/21/20 00:45 30 mg NOW DAVION Administration Hospitalist Exam Vitals: Vital Signs (12 hours) Temp Pulse Resp BP BP Pulse Ox 07/20/20 15:15 98.0 F 60 16 109/74 96 07/20/20 12:00 97.5 F L 53 L 16 116/73 97 Weight Weight 215 lb 4.8 oz General Appearance: awake alert Neck: supple, no JVD Heart: no gallops, no rubs Respiratory: no wheezes, no rales Gastrointestinal: soft, non-distended, no guarding, no rigidity Extremities: no cyanosis Neurological: no new deficit Psychiatric: normal affect, A&O x 3 Hosp A/P (1) Chest pain Code(s): R07.9 - CHEST PAIN, UNSPECIFIED Status: Acute (2) Palpitations Code(s): R00.2 - PALPITATIONS Status: Acute (3) Wide-complex tachycardia Code(s): I47.2 - VENTRICULAR TACHYCARDIA Status: Acute (4) Dyslipidemia Code(s): E78.5 - HYPERLIPIDEMIA, UNSPECIFIED Status: Chronic (5) Family history of heart disease Code(s): Z82.49 - FAMILY HX OF ISCHEM HEART DIS AND OTH DIS OF THE CIRC SYS Status: Chronic (6) Allergy to iodine Code(s): Z88.8 - ALLERGY STATUS TO OTHER DRUG/MEDS/BIOL SUBST Status: Chronic - Plan DVT proph w/SCDs Patient is a 45-year-old male with hyperlipidemia and strong family history of heart disease presented to the hospital on 07/17 with chest discomfort along with intermittent palpitations of 4 to 5 days duration. In the emergency room, he was found to have intermittent SVTs and ventricular tachycardia. He was started on Cardizem drip which was later discontinued. Patient was then evaluated by electrophysiology as well as cardiology. Electrophysiology recommended beta- blockers. He also underwent a Cardiolite stress test on 07/18 that was negative for reversible ischemia or infarction. Ejection fraction on the stress test was 43%. He also underwent echocardiogramreport pending at this time. He was initially started on metoprolol 25 mg 4 times a day that was later changed to 12.5 mg twice daily due to sinus pauses. On 07/18 he was started on amiodarone per EP Plan: Continue telemetry monitoring. Continue current dose of Imuran as well as metoprolol. Check labs in a.m. Keep npo past midnight for possible cardiac catheterization in a.m. AM labs. Continue other medications as above
[2020-07-21 05:29] LABS: #Eosinphils 0.2 thou/uL (0.0-0.7); #Lymphocytes 1.9 thou/uL (1.20-3.40); #Monocytes 0.4 thou/uL (0.11-0.59); %Basophils 0.4 % (0.0-1.0); %Eosinophils 1.9 % (0.0-10.0); %Monocytes 3.8 % (0.0-10.0); Mean Corpuscular HGB CONC 33.4 g/dL (32.0-36.0); Mean Corpuscular Hemoglobin 29.3 pg (27.0-31.0); Mean Corpuscular Volume 87.8 fL (78.0-98.0); Mean Platelet Volume 7.1 fL (7.4-10.4); Platelet Count 271 thou/uL (130-400); RBC Distribution Width 11.8 % (11.5-14.5); Red Blood Cell (RBC) Count 5.11 mill/uL (4.70-6.10); White Blood Cell (WBC) Count 11.5 thou/uL (4.8-10.8)
[2020-07-21] MEDS: Ibuprofen 600 MG TAB PO SCH ×2 (05:40→11:40)
[2020-07-21] MEDS: diphenhydrAMINE 25 MG CAP PO SCH ×2 (05:40→11:39)
[2020-07-21] MEDS: predniSONE 20 MG TAB PO SCH ×2 (05:40→11:39)
[2020-07-21 05:48] LABS: Anion Gap 14 mmol/L (10-20); BUN (Urea Nitrogen) 22 mg/dL (8.9-20.6); Calc. Creatinine Clearance 129 mL/min (70-130); Carbon Dioxide 22 mmol/L (22-29); Chloride 105 mmol/L (98-107); Glucose 116 mg/dL (70-105); Potassium 4.8 mmol/L (3.5-5.1); Sodium 136 mmol/L (136-145)
[2020-07-21] MEDS: Amiodarone 200 MG TAB PO SCH (08:29)
[2020-07-21] MEDS: Aspirin 325 mg Enteric Coated Tablet PO SCH (08:29)
[2020-07-21] MEDS: Fenofibrate Nanocrystallized 145 MG TAB PO SCH (08:29)
[2020-07-21] MEDS: Metoprolol Tartrate 25 MG TAB PO SCH (08:30)
--- NOTE | 2020-07-21 11:26 | PDOC.EP ---
- Subjective Date: 07/21/20 Time: 11:20 Interval History: feels well. palpitations have quieted over the weekend on amiodarone. Possible DC later today. - Review of Systems Constitutional: denies: chills, fever, malaise, sweats, weakness, other Respiratory: denies: cough, dry, hemoptysis, pleuritic pain, shortness of breath, SOB with excertion, sputum, wheezing, other Cardiology: denies: chest pain, edema, heart racing, light headedness, paroxysmal noc. dyspnea, orthopnea, palpitations, passing out, pleuritic pain, pressure, swelling, other Gastrointestinal: denies: abdominal pain, constipation, diarrhea, hematochezia, melena, nausea, vomitting, other Musculoskeletal: denies: unstable gait, falls, neck pain, shoulder pain, arm pain, hand pain, leg pain, foot pain, other - Objective Allergies/Adverse Reactions: Allergies Allergy/AdvReac Type Severity Reaction Status Date / Time iodine Allergy Unknown Verified 07/17/20 23:19 Penicillins Allergy Unknown Hives Verified 07/18/20 00:02 shellfish derived Allergy Unknown Hives Verified 07/17/20 23:19 Current Medications Acetaminophen (Acetaminophen 325 Mg Tab) 650 mg PO Q4H PRN PRN Reason: Headache/Fever/Mild Pain (1-3) Last Admin: 07/18/20 00:04 Dose: 650 mg Documented by: Hydrocodone Bitart/Acetaminophen (Hydrocodone/Acetaminophen 5/325 Mg Tablet) 1 tab PO Q4H PRN PRN Reason: Moderate Pain (4-6) Amiodarone HCl (Amiodarone 200 Mg Tab) 400 mg PO BID [facility] Last Admin: 07/21/20 08:29 Dose: 400 mg Documented by: Aspirin (Aspirin 325 Mg Enteric Coated Tablet) 325 mg PO DAILY [facility] Last Admin: 07/21/20 08:29 Dose: 325 mg Documented by: Diphenhydramine HCl (Diphenhydramine 25 Mg Cap) 25 mg PO Q6HR [facility] Last Admin: 07/21/20 05:40 Dose: 25 mg Documented by: Fenofibrate (Fenofibrate Nanocrystallized 145 Mg Tab) 145 mg PO DAILY [facility] Last Admin: 07/21/20 08:29 Dose: 145 mg Documented by: Ibuprofen (Ibuprofen 600 Mg Tab) 600 mg PO Q6HR [facility] Last Admin: 07/21/20 05:40 Dose: 600 mg Documented by: Metoprolol Tartrate (Metoprolol Tartrate 25 Mg Tab) 12.5 mg PO BID [facility] Last Admin: 07/21/20 08:30 Dose: 12.5 mg Documented by: Miscellaneous Medication (Electrolyte Replacement Protocol 1 Each) 1 each FS ASDIR [facility] Morphine Sulfate (Morphine 2 Mg/Ml Vial) 2 mg SLOW IVP Q4H PRN PRN Reason: Severe Pain (7-10) Nitroglycerin (Nitroglycerin 0.4 Mg Tab (25 Tab Bottle)) 0.4 mg SL Q5MIN PRN PRN Reason: Chest Pain Ondansetron HCl (Ondansetron Odt 4 Mg Tab) 4 mg PO Q6H PRN PRN Reason: Nausea/Vomiting Ondansetron HCl (Ondansetron Pf 4 Mg/2 Ml Vial) 4 mg IVP Q6H PRN PRN Reason: Nausea/Vomiting Pantoprazole Sodium (Pantoprazole 40 Mg Tab) 40 mg PO DAILY [facility] Last Admin: 07/21/20 08:29 Dose: 40 mg Documented by: Prednisone (Prednisone 20 Mg Tab) 30 mg PO Q6HR [facility] Last Admin: 07/21/20 05:40 Dose: 30 mg Documented by: Sodium Chloride (Flush - Normal Saline 10 Ml Syringe) 10 ml IVF PRN PRN PRN Reason: Saline Flush Vital Signs & Weight: Vital Signs Temp Pulse Resp BP BP BP Pulse Ox 07/21/20 08:27 65 118/77 07/21/20 07:49 97.7 F 56 L 19 103/68 92 L 07/21/20 04:25 95 07/21/20 04:00 98 F 62 13 106/66 95 07/20/20 23:30 61 117/77 98 Weight 211 lb I/O: I/O 07/20/20 07/21/20 07/22/20 06:59 06:59 06:59 Intake Total 1090 910 Output Total 759 Balance 1090 151 - Physical Exam General: alert & oriented x3, appears well, no apparent distress, speech clear, affect appropriate HEENT: mucus membranes moist, normocephaly Neck: supple neck, midline trachea, no JVD/HJR, no masses, no bruit, no lymphadenopathy, no thromegaly Cardiology: regular rate and rhythm, no murmur, regular rate, regular rhythm, PMI nondisplaced Lungs: clear to auscultation, normal breath sounds, normal exam, no wheeze, rales, rhonchi, no wheezes, no rales, no rhonchi Neurology: cranial nerve 2-12 intact, grossly intact, motor function intact, sensory function intact, negative rhomberg, coordination normal, no lateralizing findings Abdomen: unremarkable, active bowel sounds, soft, non-tender, no masses, no pulsations/bruits, no hepatosplenomegaly, HJR negative - Labs Result Diagrams: 07/21/20 04:37 07/21/20 04:37 - EKG Interpretation EKG Method: Telemetry EKG shows: Sinus rhythm - Assessment/Plan Assessment/Plan: PROBLEMS: 1. Parox atrial tachycardia with associated chest tightness and dyspnea. a. EKG suggestive of frequent paroxysmal atrial tachycardia. b. Nonsustained wide-complex rhythm also noted, VT versus aberrant conducted atrial tach, hence identical CL, 1:1 AV relationship most likley aberratly conducted A.tach. . c. Clearly rapid heartbeats could contribute to his chest pains. Ischemic eval is planned per Dr Martin. . 2. History of hyperlipidemia. 3. Strong family history of early coronary artery disease of the father and history of atrial fibrillation with father. 4. Possible endocarditis vs myocarditis. 5. Mild cardiomyopathy -nml [employer], not likely ischemic -? viral etiology 07/18/20: Palpitations continue overnight. IV Diltiazem was transiently used, but did not eliminate arrhythmia, stopped due to tendency for bradycardia. 07/21/20: Pauses/lamar on metoprolol tartrate 25mg QID overweekend. reduced to 12.5mg BID which is tolerated well so far. Rhythm stable. Continue amiodarone loading taper as OP. OK for DC by EP. Will mail him a 2 week monitor for tachybrady syndrome/PAT monitoring and follow up in 4-6 weeks in office. Discussed with Dr Martin. Plan for amidoarone 6-8 weeks, to allow for recovery from possibly inflammatory process. Then stop amio and watch for recurrence, at which point OAC/PVAI could be discussed.
--- NOTE | 2020-07-21 12:56 | CT ---
CT Chest WO Con History: Chest tightness and dyspnea Comparison: None. Findings: Lungs are clear. No pneumothorax. No effusion. No airspace consolidation. No suspicious pul monary nodule. No pericardial effusion. Pulmonary trunk measures 30 mm, mildly enlarged. No significant pericardial effusion. Geographic fatty infiltration in the right lobe of the liver. Sternum and manubrium are intact. Inferior endplate Schmorl's nodes of T6 and T12. No acute osseous a bnormality. Impression: 1. No evidence for pneumonia. 2. Mildly distended pulmonary trunk measuring 30 mm suggesting a component of pulmonary hypertension. 3. Geographic right hepatic steatosis.
--- NOTE | 2020-07-21 12:59 | PRG ---
DATE OF SERVICE: 07/21/2020 SUBJECTIVE: Mr. Rios is doing well. His rhythm disturbances appear to level out over the last 48 hours. No significant rhythm changes were noted. He is currently on a beta-dorian therapy in addition to amiodarone therapy. His stress test was negative for ischemia with LVEF 43%. LVEF likely underestimated due to arrhythmia. OBJECTIVE: CURRENT VITAL SIGNS: Blood pressure 170/74, pulse 70, temperature 97.5. LUNGS: Clear to auscultation. HEART: Regular rate and rhythm. ABDOMEN: Soft, nontender, nondistended. EXTREMITIES: No edema. IMPRESSION: A wide-complex tachycardia. RECOMMENDATIONS: Mr. Rios's wide-complex tachycardia is currently being managed by Dr. Ayala. Some appeared to be consistent with aberrancy, but cannot completely exclude VT. CT scan of the chest is pending. This was performed to assess for any significant pathology. His D-dimer was negative making PE much less likely. At this point, if CT scan of his chest is negative for significant abnormalities, we will continue with current medical therapy. Dr. Ayala will manage his rhythm disturbance as an outpatient. We will place a 3-week event recorder. Plan is to follow up with Mr. Rios in 3 to 4 weeks with a followup echo. I would anticipate his LVEF to improve over the next several weeks. Job ID: [id number]
--- NOTE | 2020-07-21 13:40 | PDOC.DS.DS ---
Provider Date of Admission: 07/18/20 13:58 Date of Discharge: 07/21/20 Admitting Provider: Natalee Gould MD Consultations: Cardiology (Dr. Martin), Electrophysiology (Dr. Ayala) Course Hospital Course: Discharge diagnosis 1. Wide-complex tachycardia 2. Cardiomyopathy Hospital course: Patient is a pleasant 45-year-old gentleman who was admitted to the hospital on July 17, 2020 for atypical chest pain and SVT and wide-complex tachycardia. He was seen by cardiology and electrophysiology services. He had a nuclear stress test, which showed mild global hypokinesis, decreased left ventricle ej ection fraction of 43% and no evidence of left ventricular myocardial ischemia or infarction. He was started on beta-dorian but the dose had to be titrated down because of bradycardia. He also received steroids and nonsteroidal anti- inflammatory agents for suspected atypical presentation of pericarditis. He continued to improve clinically. He has been started on amiodarone. He is being discharged home in a stable condition. He will be fitted with 3-week event recorder. Cardiology service will follow up in 3 to 4 weeks with a follow-up echocardiogram. Many thanks for allowing me to participate in your patient's care. Please feel free to contact me with any questions or concerns. Discharge destination: Home Total amount of time spent coordinating this discharge: 20 minutes Resuscitation Status: 07/17/20 20:04 Resuscitation Status Routine Resuscitation Status: FULL: Full Resuscitation Lab Results: 07/21/20 04:37 07/21/20 04:37 Abnormal Lab Results - Last 48 hrs 07/21/20 04:37: BUN 22 H 07/21/20 04:37: WBC 11.5 H, MPV 7.1 L, Neutrophils % 78.0 H, Lymphocytes % 16.0 L, Neutrophils # 9.0 H Vitals: Vital Signs (12 hours) Temp Pulse Resp BP BP BP Pulse Ox 07/21/20 11:38 97.5 F L 72 17 117/74 96 07/21/20 08:27 65 118/77 07/21/20 07:49 97.7 F 56 L 19 103/68 92 L 07/21/20 04:25 95 07/21/20 04:00 98 F 62 13 106/66 95 Weight Weight 211 lb Physical Exam: The patient was seen and examined on the day of discharge. Patient denies chest pain or shortness of breath. Vital signs are stable. S1 and S2 are heard. Lungs are clear to auscultation bilaterally. Plan Prescriptions: Amiodarone HCl 400 mg PO DAILY #30 tablet Metoprolol Tartrate [Lopressor] 12.5 mg PO BID #15 tab Home Medications: Medication Instructions Recorded Confirmed Type Fenofibrate Nanocrystallized 145 mg PO DAILY 07/17/20 07/17/20 History [Tricor] Aspirin/Acetaminophen/Caffeine 2 tab PO DAILY 07/18/20 07/18/20 History [Excedrin Migraine Tablet] Rosuvastatin [Crestor] 10 mg PO DAILY 07/18/20 07/18/20 History Amiodarone HCl 400 mg PO DAILY #30 tablet 07/21/20 Rx Metoprolol Tartrate [Lopressor] 12.5 mg PO BID #15 tab 07/21/20 Rx Allergies: iodine Allergy (Unknown, Verified 07/17/20 23:19) Pt cannot recall reaction Penicillins Allergy (Unknown, Verified 07/18/20 00:02) Hives shellfish derived Allergy (Unknown, Verified 07/17/20 23:19) Hives Discharge Instructions:: No driving until cleared by MD Activity:: Activity as Tolerated Nourishment:: Heart Healthy Diet Referrals: Fabián Kearney MD [Active] - 3 Days Milind Martin MD [Active] - 3-4 Weeks Daquan Ayala MD [Head Of Quality] - (3 weeks. Will receive a heart rhythm monitor in the mail, wear for 2 weeks. [phone]) Disposition: HOME Quality CORE MEASURES:: N/A
[2020-07-21 15:07] VITALS: BP 120/76; TEMP 98.5
== END 2020-07-21 15:59 | disposition home or self-care (01) | DRG 309 ==
LOC: ERS 13:18 → ERHOLD 15:55 → 2NO 20:03 → OBSVTOIN 07-18 13:58
PROVIDERS: ADMIT Internal Medicine; ATTEND Internal Medicine
DX: I47.1 Supraventricular tachycardia (principal); I31.9 Disease of pericardium, unspecified; I42.9 Cardiomyopathy, unspecified; Z20.822 Contact with and (suspected) exposure to COVID-19; E78.1 Pure hyperglyceridemia; I47.2 Ventricular tachycardia; E78.00 Pure hypercholesterolemia, unspecified; Z88.0 Allergy status to penicillin; Z91.041 Radiographic dye allergy status; Z91.013 Allergy to seafood; Z79.82 Long term (current) use of aspirin; Z79.899 Other long term (current) drug therapy; Z82.49 Family history of ischemic heart disease and other diseases of the circulatory system
CPT/HCPCS: 36415; 71045; 71250; 78452; 80048; 80053; 82550; 83690; 83735; 84443; 84484; 85025; 85379; 86140; 93005; 93010; 93017; 93306; 94760; 96365; 96366; 96374; 96375; A9500; G0378; J0153; J1644; J3475; J3490; J7512; Q0163

== ENCOUNTER 2021-03-18 07:43 | Outpatient (CLI) | payer BC ==
[2021-03-18 08:31] LABS: Hemoglobin 13.6 g/dL (13.5-17.5); Mean Corpuscular HGB CONC 33.9 g/dL (32.0-36.0); Mean Corpuscular Hemoglobin 29.6 pg (27.0-33.0); Mean Corpuscular Volume 87.4 fl (81.2-95.1); Mean Platelet Volume 9.1 fl (7.4-10.4); Platelet Count 291 10x3/uL (150-450); Red Blood Cell (RBC) Count 4.59 10x6/uL (4.32-5.72); White Blood Cell (WBC) Count 7.5 10x3/uL (3.5-10.5)
[2021-03-18 08:41] LABS: INR-International Normal Ratio 0.9; PTT 24.5 sec (22.0-33.0); Prothrombin Time 10.3 sec (9.5-12.1)
[2021-03-18 08:44] LABS: Anion Gap 12 mmol/L (10-20); BUN (Urea Nitrogen) 19 mg/dL (8.9-20.6); Calc. Creatinine Clearance 0 mL/min (70-130); Calcium 10.4 mg/dL (7.8-10.44); Carbon Dioxide 25 mmol/L (22-29); Chloride 108 mmol/L (98-107); Glucose 103 mg/dL (70-105); Potassium 4.4 mmol/L (3.5-5.1); Sodium 141 mmol/L (136-145)
[2021-03-18 19:28] LABS: SARS-CoV-2 PCR by NAA Not Detected (NotDetected)
== END 2021-03-18 07:44 | disposition home or self-care (01) ==
LOC: LABBT 07:43
PROVIDERS: ATTEND Internal Medicine Cardiovascular Disease
DX: Z01.818 Encounter for other preprocedural examination (principal); I48.91 Unspecified atrial fibrillation; I51.9 Heart disease, unspecified; Z20.822 Contact with and (suspected) exposure to COVID-19
CPT/HCPCS: 80048; 85027; 85610; 85730; 93005; 93010; U0003; U0005

== ENCOUNTER 2021-03-23 06:10 | Day surgery (SDC) | payer BC ==
[2021-03-20 09:51] VITALS: BMI 28.8
[2021-03-23] MEDS ORDERED: Fentanyl 100 MCG/2 ML VIAL ONE (06:34)
[2021-03-23] MEDS ORDERED: Midazolam HCl 2 mg/2 ml Vial ONE (06:34)
[2021-03-23] MEDS ORDERED: Heparin 25,000 units/D5W 500 ML ONE (06:40)
[2021-03-23] MEDS ORDERED: Heparin 10,000 UNITS/ 10 ML VIAL ONE ×2 (06:40→10:48)
[2021-03-23] MEDS ORDERED: Isoproterenol 0.2 MG/1 ML AMP ONE (07:29)
[2021-03-23] MEDS ORDERED: Metoclopramide HCl 10 MG/2 ML VIAL ONE (07:51)
[2021-03-23] MEDS ORDERED: PHENYLEPHRINE-NS 100 MCG/ML 10 ML SYRINGE ONE (07:51)
[2021-03-23] MEDS ORDERED: Rocuronium Bromide 10 MG/ML (10ML VIAL) ONE (07:51)
[2021-03-23] MEDS ORDERED: Dexamethasone 20 MG/5 ML VIAL ONE (07:51)
[2021-03-23] MEDS ORDERED: PROPOFOL 200 MG/20 ML VIAL ONE (07:51)
[2021-03-23] MEDS ORDERED: Lidocaine 1% PF 5 ML VIAL ONE (07:51)
[2021-03-23] MEDS ORDERED: Glycopyrrolate 0.2 MG/ML 5 ML SYRINGE ONE (07:51)
[2021-03-23] MEDS ORDERED: Ondansetron PF 4 MG/2 ML Vial ONE (07:51)
[2021-03-23] MEDS ORDERED: ePHEDrine 50 MG/ML VIAL ONE (07:51)
[2021-03-23] MEDS ORDERED: Protamine Sulfate 50 MG/5 ML VIAL ONE ×2 (10:48)
[2021-03-23] MEDS ORDERED: Furosemide 40 MG TAB PO PRN (11:14)
[2021-03-23] MEDS ORDERED: Ketorolac Tromethamine 30 MG/ML VIAL IVP PRN (11:14)
[2021-03-23] MEDS ORDERED: Potassium Chloride 20 MEQ TAB PO PRN (11:14)
[2021-03-23] MEDS ORDERED: Sucralfate 1 GM TAB PO SCH (11:30)
[2021-03-23] MEDS ORDERED: Rivaroxaban 10 MG TAB PO SCH (18:00)
== END 2021-03-23 15:20 | disposition home or self-care (01) ==
LOC: CCL 06:10
PROVIDERS: ATTEND Internal Medicine Cardiovascular Disease
PROC: B244ZZ3 Ultrasonography of Right Heart, Intravascular (ICD-10-PCS; principal; 2021-03-23)
PROC: 4A0234Z Measurement of Cardiac Electrical Activity, Percutaneous Approach (ICD-10-PCS; principal; 2021-03-23)
PROC: 4A023FZ Measurement of Cardiac Rhythm, Percutaneous Approach (ICD-10-PCS; principal; 2021-03-23)
PROC: 02K83ZZ Map Conduction Mechanism, Percutaneous Approach (ICD-10-PCS; principal; 2021-03-23)
PROC: 02583ZZ Destruction of Conduction Mechanism, Percutaneous Approach (ICD-10-PCS; principal; 2021-03-23)
DX: I47.1 Supraventricular tachycardia (principal); I48.91 Unspecified atrial fibrillation; I42.9 Cardiomyopathy, unspecified; I49.5 Sick sinus syndrome; E78.00 Pure hypercholesterolemia, unspecified; Z82.49 Family history of ischemic heart disease and other diseases of the circulatory system; Z79.82 Long term (current) use of aspirin; Z79.899 Other long term (current) drug therapy; Z88.0 Allergy status to penicillin; Z91.013 Allergy to seafood; Z91.041 Radiographic dye allergy status
CPT/HCPCS: 85347; 93005; 93613; 93622; 93623; 93656; 93657; 93662; C1730; C1732; C1759; J1100; J1644; J2250; J2405; J2704; J2720; J2765; J3010; J3490

== ENCOUNTER 2023-07-28 16:00 | Outpatient (CLI) | payer BC | END 2023-07-28 16:01 | disposition home or self-care (01) | LOC: SLEEPLAB 16:00 | PROVIDERS: ATTEND Family Medicine | DX: G47.33 Obstructive sleep apnea (adult) (pediatric) (principal); R06.83 Snoring; R09.89 Other specified symptoms and signs involving the circulatory and respiratory systems | CPT/HCPCS: 95800 ==